=== PATIENT | male | born 1970 | race Caucasian/White ===

== ENCOUNTER 2017-07-05 15:50 | Outpatient (CLI) | payer SELFPAY ==
--- NOTE | 2017-07-06 08:03 | XRAY Report ---
EXAM: LEFT FOOT RADIOGRAPHY EXAM DATE: 07/05/2017 04:20 PM. CLINICAL HISTORY: FOOT JOINT PAIN, LEFT. COMPARISON: None. TECHNIQUE: 3 views. FINDINGS: Bones: Small plantar spur. No fractures or bone lesions. Joints: Halgus valgus measuring 21 degrees. First metatarsophalangeal joint osteophytic lipping. Soft Tissues: Normal. No soft tissue swelling. IMPRESSION: 1. No fracture or dislocation 2. Small plantar spur 3. 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
== END 2017-07-05 15:51 | disposition home or self-care (01) ==
LOC: DI 15:50
PROVIDERS: ATTEND Family Medicine
DX: M79.672 Pain in left foot (principal); M77.52 Other enthesopathy of left foot and ankle; M21.612 Bunion of left foot

== ENCOUNTER 2018-05-18 13:43 | Emergency (ER) | payer SELFPAY ==
[2018-05-18] MEDS ORDERED: NITROGLYCERIN SL 0.4 MG TABLET SL STA (14:21)
[2018-05-18] MEDS ORDERED: hydrALAZINE INJ 20 MG/ML VIAL IVP STA (14:22)
[2018-05-18 14:49] LABS: BASOPHILS % (AUTO) 0.5 %; EOSINOPHILS # (AUTO) 0.1 10^3/uL (0.0-0.7); EOSINOPHILS % (AUTO) 0.9 %; HGB - HEMOGLOBIN 13.1 g/dL (14.0-18.0); LYMPHOCYTES % (AUTO) 30.5 %; MEAN CORPUSCULAR HGB CONC 33.4 g/dL (32.0-36.0); MEAN CORPUSCULAR VOLUME 87.1 fL (80.0-94.0); MEAN PLATELET VOLUME 7.9 fL (7.4-11.4); MONOCYTES # (AUTO) 0.6 10^3/uL (0.0-1.0); MONOCYTES % (AUTO) 8.4 %; NEUTROPHILS % (AUTO) 59.7 %; PLT - PLATELET COUNT 270 10^3/uL (130-450); RED CELL DISTRIBUTION WIDTH 13.3 % (12.0-15.0); WHITE BLOOD COUNT 6.7 x10^3/uL (4.8-10.8)
[2018-05-18 15:03] LABS: ALBUMIN 3.7 g/dL (3.2-5.5); ALBUMIN/GLOBULIN RATIO 0.9 (1.0-2.2); BILIRUBIN,TOTAL 0.9 mg/dL (0.2-1.0); CALCIUM 9.1 mg/dL (8.5-10.3); CREATININE 1.1 mg/dL (0.6-1.2)
[2018-05-18 15:50] VITALS: BP 160/100
--- NOTE | 2018-05-18 15:56 | ED Physician Documentation ---
PD HPI CHEST PAIN - Stated complaint Stated Complaint: CHEST TIGHTNESS/HIGH BP - Chief complaint Chief Complaint: Cardiac - History obtained from History obtained from: Patient, Family - History of Present Illness Timing - onset: How many days ago (3) Timing - details: Gradual onset, Now resolved, Intermittant Quality: Pressure, Tightness Similar symptoms before: Work up / diagnostics Recently seen: Not recently seen - Additional information Additional information: Patient is a 47 year old male who is presenting to the emergency department for intermittent chest pain, and tingling in his hand. Patient does have a history of high blood pressure but it has not been controlled with the two agents he is on. Patient reports that over the last couple of days he has had multiple episodes of chest tightness. they normally go away on their own. Currently patient is asymptomatic. Review of Systems Ten Systems: 10 systems reviewed and negative Constitutional: denies: Fever, Chills Eyes: denies: Decreased vision, Photophobia PD PAST MEDICAL HISTORY - Past Medical History Cardiovascular: Hypertension - Past Surgical History Past Surgical History: No - Present Medications Home Medications: Ambulatory Orders Medication Instructions Recorded Confirmed Lisinopril/Hydrochlorothiazide 40 mg PO DAILY 05/18/18 05/18/18 [Lisinopril-Hctz 20-12.5 mg Tab] Metoprolol Tartrate 25 mg PO BID 05/18/18 05/18/18 - Allergies Allergies/Adverse Reactions: Allergies Allergy/AdvReac Type Severity Reaction Status Date / Time No Known Drug Allergies Allergy Verified 05/18/18 14:24 - Social History Does the pt smoke?: No Smoking Status: Never smoker Does the pt drink ETOH?: Yes ETOH Use: Beer Does the pt have substance abuse?: No - Immunizations Immunizations are current?: Yes PD ED PE NORMAL - Vitals Vital signs reviewed: Yes - General General: Alert and oriented X 3, No acute distress - HEENT HEENT: Atraumatic - Neck Neck: No JVD - Cardiac Cardiac: RRR, No murmur - Respiratory Respiratory: No respiratory distress - Abdomen Abdomen: Soft, Non tender, Non distended - Derm Derm: Normal color, Warm and dry - Extremities Extremities: No deformity, No edema, No calf tenderness / cord - Neuro Neuro: Alert and oriented X 3, No motor deficit, Normal speech Eye Opening: Spontaneous Motor: Obeys Commands Verbal: Oriented GCS Score: 15 - Psych Psych: Normal mood Results - Vitals Vitals: Vital Signs - 24 hr 05/18/18 05/18/18 05/18/18 13:47 14:10 14:32 Temperature 36.1 C L Heart Rate 84 78 78 Respiratory 18 17 13 Rate Blood Pressure 179/122 H 167/128 H 160/117 H O2 Saturation 99 98 97 05/18/18 15:50 Temperature Heart Rate 77 Respiratory 17 Rate Blood Pressure 160/100 H O2 Saturation 97 Oxygen O2 Source Room air - EKG (time done) 1358 Rate: Rate (enter#) (82) Rhythm: NSR Baxter: LAD Intervals: Normal AK Ischemia: Non specific changes Compare to prior EKG: Old EKG unavailable - Labs Labs: Laboratory Tests 05/18/18 05/18/18 05/18/18 14:20 14:20 14:20 WBC 6.7 RBC 4.50 L Hgb 13.1 L Hct 39.2 L MCV 87.1 MCH 29.0 MCHC 33.4 RDW 13.3 Plt Count 270 MPV 7.9 Neut # (Auto) 4.0 Lymph # (Auto) 2.0 [place] # (Auto) 0.6 Eos # (Auto) 0.1 Baso # (Auto) 0.0 Absolute Nucleated RBC 0.00 Nucleated RBC % 0.0 Sodium 137 Potassium 3.0 L Chloride 98 L Carbon Dioxide 29 Anion Gap 10.0 BUN 22 H Creatinine 1.1 Estimated GFR (MDRD) 72 L Glucose 98 Calcium 9.1 Total Bilirubin 0.9 AST 98 H ALT 118 H Alkaline Phosphatase 55 Troponin I < 0.04 B-Natriuretic Peptide Total Protein 8.0 Albumin 3.7 Globulin 4.3 H Albumin/Globulin Ratio 0.9 L Lipase 42 TSH 05/18/18 05/18/18 14:20 14:20 WBC RBC Hgb Hct MCV MCH MCHC RDW Plt Count MPV Neut # (Auto) Lymph # (Auto) [place] # (Auto) Eos # (Auto) Baso # (Auto) Absolute Nucleated RBC Nucleated RBC % Sodium Potassium Chloride Carbon Dioxide Anion Gap BUN Creatinine Estimated GFR (MDRD) Glucose Calcium Total Bilirubin AST ALT Alkaline Phosphatase Troponin I B-Natriuretic Peptide 42 Total Protein Albumin Globulin Albumin/Globulin Ratio Lipase TSH 1.19 PD MEDICAL DECISION MAKING - ED course Complexity details: reviewed old records, reviewed results, re-evaluated patient , d/w patient, d/w family, d/w golf tournament consultant ED course: Patient was seen and examined at bedside. iv access was gained and labs were drawn. ekg was performed and showed no acute ischemic changes. imaging was ordered but patient refused. Patient was treated with hydralizine 10mg IV push. Patient's labs showed no signs of end organ damage. Patient remained asymptomatic. patient's diastolic blood pressure improved to 100. Case was discussed with the hospitalist who recommended doubling the dose of his medications until he could follow up with his doctor. patient and felt comfortable with the plan. patient was stable for discharge with outpatient follow up. - Sepsis Event Vital Signs: Vital Signs - 24 hr 05/18/18 05/18/18 05/18/18 13:47 14:10 14:32 Temperature 36.1 C L Heart Rate 84 78 78 Respiratory 18 17 13 Rate Blood Pressure 179/122 H 167/128 H 160/117 H O2 Saturation 99 98 97 05/18/18 15:50 Temperature Heart Rate 77 Respiratory 17 Rate Blood Pressure 160/100 H O2 Saturation 97 Oxygen O2 Source Room air Departure - Departure Disposition: 01 Home, Self Care Clinical Impression: HTN (hypertension) Condition: Good Instructions: ED HTN Established Follow-Up: Silvana Guallpa PA-C [Primary Care Provider] - Tomorrow Comments: Your diagnostics today were within normal limits. you will need to double the medications you are taking for your blood pressure until you can follow up with your doctor. you should call them today to schedule a follow up appointment. you should return to the emergency department at any time for new, worseningn or uncontrollable symptoms.
== END 2018-05-18 16:10 | disposition home or self-care (01) ==
LOC: ED 13:43
DX: I10 Essential (primary) hypertension (principal)
CPT/HCPCS: 36415; 80053; 83690; 83880; 84443; 84484; 85025; 93005; 96374; 99283; 99284